=== PATIENT | female | born 1980 | race Asian ===

== ENCOUNTER 2017-03-16 18:05 | Emergency (ER) | payer OTHER ==
[~2017-03-16] VITALS: Ht 162.6 cm; Wt 86.2 kg
[2017-03-16 18:55] LABS: HEMATOCRIT 47.6 % (34.6-47.8); HEMOGLOBIN 15.9 g/dL (11.7-16.4); WHITE BLOOD COUNT 5.3 x10^3/uL (3.4-10)
[2017-03-16 19:07] LABS: ASPARTATE AMINO TRANSFERASE 10 U/L (15-37); BLOOD UREA NITROGEN 10 mg/dL (7-18)
[2017-03-16] MEDS ORDERED: BUPR-173 PO (19:16)
[2017-03-16] MEDS ORDERED: WARF5TAB7 PO (19:16)
[2017-03-16] MEDS ORDERED: OMEP20TA62 PO (19:18)
[2017-03-16] MEDS ORDERED: VARE1TAB20 PO (19:18)
[2017-03-16] MEDS ORDERED: CITA20TA9 PO (19:18)
[2017-03-16] MEDS ORDERED: VARE0.5T PO (19:18)
[2017-03-16] MEDS ORDERED: MYCO250C PO (19:18)
[2017-03-16 19:52] VITALS: BP 134/67
== END 2017-03-16 19:55 | disposition home or self-care (01) ==
LOC: ED 19:34
DX: S16.1XXA Strain of muscle, fascia and tendon at neck level, initial encounter (principal); M62.838 Other muscle spasm; Z86.718 Personal history of other venous thrombosis and embolism; Z90.49 Acquired absence of other specified parts of digestive tract; Z98.890 Other specified postprocedural states; Z87.891 Personal history of nicotine dependence; V43.52XA Car driver injured in collision with other type car in traffic accident, initial encounter; Y93.89 Activity, other specified; Y92.488 Other paved roadways as the place of occurrence of the external cause; Y99.8 Other external cause status
CPT/HCPCS: 36415; 70450; 71010; 72125; 80053; 85025; 85610; 99285

== ENCOUNTER 2017-04-30 15:31 | Inpatient (IN) | payer MEDICAID, OTHER ==
[~2017-04-30] VITALS: Ht 162.6 cm; Wt 90.8 kg
[~2017-04-30 15:31] MED LIST: BUPR-173 PO; CITA20TA9 PO; MYCO250C PO; OMEP20TA62 PO; VARE0.5T PO; VARE1TAB20 PO; WARF5TAB7 PO
[2017-04-30 16:18] LABS: HEMATOCRIT 44.1 % (34.6-47.8); HEMOGLOBIN 14.7 g/dL (11.7-16.4); WHITE BLOOD COUNT 4.5 x10^3/uL (3.4-10)
[2017-04-30 16:27] LABS: BLOOD UREA NITROGEN 9 mg/dL (7-18)
[2017-04-30 17:41] LABS: PATH.CAST-FLAG NOT PRESENT; SPERM-FLAG NOT PRESENT; SRC-FLAG NOT PRESENT; XTAL-FLAG NOT PRESENT; YLC-FLAG NOT PRESENT
[2017-04-30] MEDS ORDERED: NICOTINE 14MG/24 HR PATCH.TD24 TD ONE (20:30)
[2017-04-30] MEDS ORDERED: PROMETHAZINE 25 MG/ML, 1ML IM PRN (20:30)
[2017-04-30] MEDS ORDERED: hydrALAzine 20 MG/ML, 1ML IVPush PRN (20:30)
[2017-04-30] MEDS ORDERED: ACETAMINOPHEN 325 MG TABLET PO PRN (20:30)
[2017-04-30] MEDS: CEFTRIAXONE PMX 1GM/50ML 50 ML IV SCH (21:01)
[2017-04-30] MEDS: SODIUM CHLORIDE FLUSH 10ML SYR IVF SCH (21:03)
[2017-04-30 22:16] VITALS: BP 132/91
[2017-04-30] MEDS: BUPROPION SR 100 MG TABLET PO SCH (23:37)
[2017-05-01] MEDS ORDERED: IMMUNE GLOBULIN IV ONE (01:30)
[2017-05-01] MEDS ORDERED: EVACUATED CONTAINER IV ONE (01:30)
[2017-05-01 04:00] VITALS: BP 116/74
[2017-05-01] MEDS ORDERED: OXYcodone IR 5MG TABLET PO PRN (08:30)
[2017-05-01] MEDS ORDERED: PYRIDOSTIGMINE 60 MG TABLET PO SCH (09:00)
[2017-05-01] MEDS ORDERED: PYRIDOSTIGMINE 60 MG TABLET PO PRN (09:00)
[2017-05-01] MEDS ORDERED: OXYC5TAB3 PO (09:02)
[2017-05-01] MEDS ORDERED: GABA-826 PO (09:05)
[2017-05-01] MEDS: OXYcodone IR 5MG TABLET PO PRN ×2 (11:16→19:09)
[2017-05-01] MEDS: CITALOPRAM 20 MG TABLET PO SCH (11:17)
[2017-05-01] MEDS: BUPROPION SR 100 MG TABLET PO SCH ×2 (11:17→21:00)
[2017-05-01] MEDS: SODIUM CHLORIDE FLUSH 10ML SYR IVF SCH ×2 (11:17→20:59)
[2017-05-01] MEDS: ENOXAPARIN 80 MG/0.8 ML SQ SCH ×2 (11:17→21:00)
[2017-05-01] MEDS: PANTOPRAZOLE 40 MG IV IVPush SCH ×2 (11:17→20:59)
[2017-05-01] MEDS: GABAPENTIN 100 MG CAPSULE PO SCH ×2 (11:56→21:00)
[2017-05-01] MEDS ORDERED: WARFARIN 5 MG TABLET PO-COUM SCH (18:00)
[2017-05-01] MEDS ORDERED: WARFARIN 7.5 MG TABLET PO-COUM ONE (18:00)
[2017-05-01] MEDS: CEFTRIAXONE PMX 1GM/50ML 50 ML IV SCH (20:59)
[2017-05-01] MEDS: EVACUATED CONTAINER IVPB SCH (21:51)
[2017-05-01] MEDS: IMMUNE GLOBULIN IVPB SCH (21:51)
[2017-05-02] MEDS: OXYcodone IR 5MG TABLET PO PRN ×3 (00:30→21:55)
[2017-05-02 04:40] VITALS: BP 129/64
[2017-05-02 04:47] LABS: HEMATOCRIT 40.9 % (34.6-47.8); HEMOGLOBIN 13.6 g/dL (11.7-16.4)
[2017-05-02 04:59] LABS: ASPARTATE AMINO TRANSFERASE 11 U/L (15-37); BLOOD UREA NITROGEN 10 mg/dL (7-18)
[2017-05-02] MEDS: CITALOPRAM 20 MG TABLET PO SCH (08:58)
[2017-05-02] MEDS: ENOXAPARIN 80 MG/0.8 ML SQ SCH ×2 (08:58→21:00)
[2017-05-02] MEDS: BUPROPION SR 100 MG TABLET PO SCH ×2 (08:59→21:38)
[2017-05-02] MEDS: PANTOPRAZOLE 40 MG IV IVPush SCH (08:59)
[2017-05-02] MEDS: GABAPENTIN 100 MG CAPSULE PO SCH ×2 (08:59→21:38)
[2017-05-02] MEDS: SODIUM CHLORIDE FLUSH 10ML SYR IVF SCH ×2 (09:04→21:40)
[2017-05-02 14:01] VITALS: BP 121/76
[2017-05-02] MEDS ORDERED: WARFARIN 10 MG TABLET PO-COUM ONE (18:00)
[2017-05-02 19:07] VITALS: BP 158/84
[2017-05-02] MEDS: IMMUNE GLOBULIN IVPB SCH (22:07)
[2017-05-02] MEDS: EVACUATED CONTAINER IVPB SCH (22:07)
[2017-05-03 02:00] VITALS: BP 144/93
[2017-05-03] MEDS: KETOROLAC 30 MG/1 ML IVPush PRN ×3 (03:21→21:27)
[2017-05-03 06:18] LABS: BLOOD UREA NITROGEN 10 mg/dL (7-18)
[2017-05-03] MEDS: PANTOPRAZOLE 40 MG IV IVPush SCH (08:27)
[2017-05-03] MEDS: SODIUM CHLORIDE FLUSH 10ML SYR IVF SCH ×2 (08:27→21:27)
[2017-05-03] MEDS: GABAPENTIN 100 MG CAPSULE PO SCH ×2 (08:28→21:27)
[2017-05-03] MEDS: CITALOPRAM 20 MG TABLET PO SCH (08:28)
[2017-05-03] MEDS: BUPROPION SR 100 MG TABLET PO SCH ×2 (08:28→21:28)
[2017-05-03] MEDS: ENOXAPARIN 80 MG/0.8 ML SQ SCH ×2 (08:29→21:00)
[2017-05-03] MEDS ORDERED: SUMATRIPTAN 6MG/0.5ML SQ ONE (09:00)
[2017-05-03] MEDS: OXYcodone IR 5MG TABLET PO PRN ×2 (13:00→22:36)
[2017-05-03 14:00] VITALS: BP 146/94
[2017-05-03] MEDS ORDERED: WARFARIN 10 MG TABLET PO-COUM ONE (18:00)
[2017-05-03 18:49] VITALS: BP 147/85
[2017-05-03] MEDS: IMMUNE GLOBULIN IVPB SCH (21:31)
[2017-05-03] MEDS: EVACUATED CONTAINER IVPB SCH (21:31)
[2017-05-04 00:32] VITALS: BP 145/85
[2017-05-04] MEDS: KETOROLAC 30 MG/1 ML IVPush PRN ×2 (06:12→13:39)
[2017-05-04 07:48] VITALS: BP 145/90
[2017-05-04] MEDS: CITALOPRAM 20 MG TABLET PO SCH (10:03)
[2017-05-04] MEDS: PANTOPRAZOLE 40 MG IV IVPush SCH (10:03)
[2017-05-04] MEDS: ENOXAPARIN 80 MG/0.8 ML SQ SCH (10:04)
[2017-05-04] MEDS: GABAPENTIN 100 MG CAPSULE PO SCH (10:04)
[2017-05-04] MEDS: SODIUM CHLORIDE FLUSH 10ML SYR IVF SCH (10:04)
[2017-05-04] MEDS: BUPROPION SR 100 MG TABLET PO SCH (10:04)
[2017-05-04] MEDS: OXYcodone IR 5MG TABLET PO PRN (11:45)
[2017-05-04 13:33] VITALS: BP 143/88
[2017-05-04] MEDS ORDERED: PYRI60TA2 PO (14:57)
[2017-05-04] MEDS ORDERED: WARFARIN 10 MG TABLET PO-COUM ONE (18:00)
[2017-05-04] MEDS ORDERED: WARFARIN 2.5 MG TABLET PO-COUM ONE (18:00)
[2017-05-04] MEDS ORDERED: FLU VACC QS2017-18 (36MOS+) UP/PF 0.5 ML IM-VACC ONE (18:00)
== END 2017-05-04 18:57 | disposition home or self-care (01) | DRG 57 ==
LOC: ED 19:31 → EDIP 20:01 → CCU 21:28 → 4WST 05-02 12:01
PROVIDERS: ADMIT Hospitalist; ATTEND Hospitalist
DX: G70.01 Myasthenia gravis with (acute) exacerbation (principal); R13.10 Dysphagia, unspecified; N39.0 Urinary tract infection, site not specified; G43.909 Migraine, unspecified, not intractable, without status migrainosus; F17.200 Nicotine dependence, unspecified, uncomplicated; G47.33 Obstructive sleep apnea (adult) (pediatric); F32.9 Major depressive disorder, single episode, unspecified; G56.00 Carpal tunnel syndrome, unspecified upper limb; J45.909 Unspecified asthma, uncomplicated; Z86.718 Personal history of other venous thrombosis and embolism; Z83.3 Family history of diabetes mellitus; Z90.49 Acquired absence of other specified parts of digestive tract; Z98.51 Tubal ligation status; Z88.5 Allergy status to narcotic agent; Z88.1 Allergy status to other antibiotic agents; Z91.040 Latex allergy status; Z88.8 Allergy status to other drugs, medicaments and biological substances
CPT/HCPCS: 36415; 70450; 71010; 80048; 80053; 81001; 82040; 83735; 84100; 84439; 84443; 84703; 85025; 85610; 87081; 87086; 90686; 93005; 94150; 99285; J0696; J1459; J1650; J1885; C9113; J3030; J7517